=== PATIENT | female | born 1950 | race Caucasian/White ===

== ENCOUNTER → 2017-04-20 | Outpatient (CLI) | payer MEDICARE ==
[2016-01-22 12:55] VITALS: BP 138/88
[~2017-04-20] MED LIST: ASPIRIN E.C. 8181 MG PO; CRESTOR 10MG10 MG PO; IBU600 MG PO; NORCO 325 MG-51 TAB PO
[2017-04-20 07:38] LABS: ALBUMIN 3.9 g/dL (3.5-5.0); CALCIUM 9.2 mg/dL (8.4-10.2); TOTAL BILIRUBIN 0.7 mg/dL (0.2-1.3)
[2017-04-20 07:40] LABS: EOS # 0.2 (0.04-0.40); EOS % 2.8 % (1.0-5.0); HEMATOCRIT 42.4 % (37.0-47.0); HEMOGLOBIN 14.1 g/dL (12.5-16.0); LYMPH# 2.7 (1.50-4.00); MEAN CELL VOLUME 92 fl (78-100); MEAN CORPUSCULAR HEMOGLOBIN 31 pg (27-31); MEAN CORPUSCULAR HGB CONC 33 g/dL (33-37); MEAN PLATELET VOLUME 8.6 fl (7.4-10.4); MONO # 0.8 (0.20-0.80); PLATELET COUNT 330 K/mm3 (130-400); RED BLOOD COUNT 4.63 M/mm3 (4.10-5.30); RED CELL DISTRIBUTION WIDTH 13.6 % (11.5-14.5); WHITE BLOOD COUNT 7.7 K/mm3 (4.8-10.8)
== END ==
LOC: LAB 07:07
PROVIDERS: Nurse Practitioner Family
DX: Z00.00 Encounter for general adult medical examination without abnormal findings (principal); I10 Essential (primary) hypertension; R73.01 Impaired fasting glucose; Z13.220 Encounter for screening for lipoid disorders

== ENCOUNTER → 2017-05-29 | Outpatient (CLI) | payer MEDICARE ==
[2016-01-22 12:55] VITALS: BP 138/88
== END ==
LOC: RAD 16:00 → MAMMO 16:00
DX: Z12.31 Encounter for screening mammogram for malignant neoplasm of breast (principal)
CPT/HCPCS: G0202

== ENCOUNTER → 2017-08-29 | Outpatient (CLI) | payer MEDICARE ==
[2016-01-22 12:55] VITALS: BP 138/88
== END ==
LOC: RAD 15:27
DX: M17.0 Bilateral primary osteoarthritis of knee (principal)

== ENCOUNTER → 2018-12-05 | Outpatient (CLI) | payer MEDICARE ==
[2016-01-22 12:55] VITALS: BP 138/88
[2018-12-05 10:29] LABS: EOS # 0.2 (0.04-0.40); EOS % 1.5 % (1.0-5.0); HEMATOCRIT 43.3 % (37.0-47.0); MEAN CELL VOLUME 94 fl (78-100); MEAN CORPUSCULAR HEMOGLOBIN 30 pg (27-31); MEAN CORPUSCULAR HGB CONC 32 g/dL (33-37); MEAN PLATELET VOLUME 9.7 fl (7.4-10.4); MONO # 0.8 (0.20-0.80); NEU # 7.3 (1.40-6.50); PLATELET COUNT 97 K/mm3 (130-400); RED CELL DISTRIBUTION WIDTH 14.7 % (11.5-14.5); WHITE BLOOD COUNT 11.4 K/mm3 (4.8-10.8)
[2018-12-05 10:52] LABS: ALBUMIN 3.9 g/dL (3.4-4.8); POTASSIUM 3.9 mmol/L (3.5-5.1)
[2018-12-05 10:53] LABS: CALCIUM 9.4 mg/dL (8.3-10.5)
[2018-12-05 10:54] LABS: TOTAL PROTEIN 7.1 g/dL (6.2-8.1)
[2018-12-05 10:56] LABS: TOTAL BILIRUBIN 0.5 mg/dL (0.2-1.2)
== END ==
LOC: LAB 10:11
PROVIDERS: Physician Assistant
DX: Z00.00 Encounter for general adult medical examination without abnormal findings (principal); Z12.31 Encounter for screening mammogram for malignant neoplasm of breast; I10 Essential (primary) hypertension; M19.90 Unspecified osteoarthritis, unspecified site; K21.9 Gastro-esophageal reflux disease without esophagitis; J45.909 Unspecified asthma, uncomplicated; M85.851 Other specified disorders of bone density and structure, right thigh; M85.852 Other specified disorders of bone density and structure, left thigh

== ENCOUNTER 2018-12-20 12:06 | Emergency (ER) | payer MEDICARE ==
[~2018-12-20] VITALS: Ht 157.5 cm; Wt 85.0 kg
[2018-12-20] MEDS ORDERED: AUGMENTIN 875-1 EAC1 PO (13:42)
[2018-12-20] MEDS ORDERED: NORCO 325 MG-51 TA1 PO (13:42)
[2018-12-20 14:01] VITALS: BP 154/87
== END 2018-12-20 13:58 | disposition home or self-care (01) ==
LOC: ED 12:06
DX: S02.2XXB Fracture of nasal bones, initial encounter for open fracture (principal); K21.9 Gastro-esophageal reflux disease without esophagitis; Z90.49 Acquired absence of other specified parts of digestive tract; Z23 Encounter for immunization; W01.0XXA Fall on same level from slipping, tripping and stumbling without subsequent striking against object, initial encounter; Y93.02 Activity, running; Y92.009 Unspecified place in unspecified non-institutional (private) residence as the place of occurrence of the external cause

== ENCOUNTER → 2019-03-12 | Outpatient (CLI) | payer MEDICARE ==
[~2019-03-12] MED LIST changes: +AUGMENTIN 875-1 EAC1 PO; +NORCO 325 MG-51 TA1 PO
== END ==
LOC: RAD 09:30
DX: M13.862 Other specified arthritis, left knee (principal); M13.861 Other specified arthritis, right knee

== ENCOUNTER → 2019-08-12 | Outpatient (CLI) | payer MEDICARE | LOC: MAMMO 09:15 | DX: Z12.31 Encounter for screening mammogram for malignant neoplasm of breast (principal); I10 Essential (primary) hypertension; J45.909 Unspecified asthma, uncomplicated; M85.851 Other specified disorders of bone density and structure, right thigh; M19.90 Unspecified osteoarthritis, unspecified site; K21.9 Gastro-esophageal reflux disease without esophagitis ==

== ENCOUNTER → 2020-02-04 | Day surgery (SDC) | payer MEDICARE | LOC: MSO 12:35 | DX: H25.11 Age-related nuclear cataract, right eye (principal); Z90.710 Acquired absence of both cervix and uterus; Z90.49 Acquired absence of other specified parts of digestive tract; I10 Essential (primary) hypertension; J45.909 Unspecified asthma, uncomplicated; Z85.828 Personal history of other malignant neoplasm of skin | CPT/HCPCS: 00142; J0171; J2250; V2632 ==

== ENCOUNTER → 2020-03-03 | Day surgery (SDC) | payer MEDICARE | LOC: MSO 11:56 | DX: H25.12 Age-related nuclear cataract, left eye (principal); I10 Essential (primary) hypertension; J45.909 Unspecified asthma, uncomplicated; K21.9 Gastro-esophageal reflux disease without esophagitis; M19.90 Unspecified osteoarthritis, unspecified site; Z85.828 Personal history of other malignant neoplasm of skin; E66.01 Morbid (severe) obesity due to excess calories; Z90.49 Acquired absence of other specified parts of digestive tract; Z90.710 Acquired absence of both cervix and uterus | CPT/HCPCS: 00142; J0171; J2250; J3010; V2632 ==

== ENCOUNTER → 2020-08-11 | Outpatient (CLI) | payer MEDICARE | LOC: RAD 09:07 | DX: M22.2X2 Patellofemoral disorders, left knee (principal); M17.11 Unilateral primary osteoarthritis, right knee ==

== ENCOUNTER → 2020-10-11 | Outpatient (CLI) | payer MEDICARE | LOC: LAB 16:35 | DX: R05 Cough (principal); Z20.822 Contact with and (suspected) exposure to COVID-19 ==

== ENCOUNTER → 2020-11-19 | Outpatient (CLI) | payer MEDICARE ==
[2020-11-19 09:52] LABS: HEMATOCRIT 43.9 % (37.0-47.0); HEMOGLOBIN 14.8 g/dL (12.5-16.0); MEAN CELL VOLUME 89 fl (78-100); MEAN CORPUSCULAR HEMOGLOBIN 30 pg (27-31); MEAN CORPUSCULAR HGB CONC 34 g/dL (33-37); MEAN PLATELET VOLUME 8.1 fl (7.4-10.4); PLATELET COUNT 387 K/mm3 (130-400); RED BLOOD COUNT 4.92 M/mm3 (4.10-5.30); RED CELL DISTRIBUTION WIDTH 13.3 % (11.5-14.5)
[2020-11-19 10:03] LABS: ALBUMIN 4.1 g/dL (3.4-4.8); POTASSIUM 4.5 mmol/L (3.5-5.1)
[2020-11-19 10:04] LABS: CALCIUM 9.5 mg/dL (8.3-10.5)
[2020-11-19 10:06] LABS: TOTAL PROTEIN 7.3 g/dL (6.2-8.1)
[2020-11-19 10:08] LABS: TOTAL BILIRUBIN 0.3 mg/dL (0.2-1.2)
[2020-11-19 10:29] LABS: WHITE BLOOD COUNT 25.1 K/mm3 (4.8-10.8)
[2020-11-19 10:54] LABS: LYMPHOCYTE 11 % (20-51); MONOCYTE 6 % (3-10); NEUTROPHILS 83 % (42-75)
== END ==
LOC: LAB 09:33
PROVIDERS: Physician Assistant
DX: Z13.1 Encounter for screening for diabetes mellitus (principal); E78.2 Mixed hyperlipidemia; I10 Essential (primary) hypertension; M85.80 Other specified disorders of bone density and structure, unspecified site

== ENCOUNTER 2021-05-28 18:44 | Emergency (ER) | payer MEDICARE ==
[2021-05-28] MEDS ORDERED: CYCLOBENZAPRINE10 M1 PO (21:31)
[2021-05-28] MEDS ORDERED: PERCOCET 325 MG1 TA2 PO (21:31)
[2021-05-28 21:48] VITALS: BP 140/76
== END 2021-05-28 21:49 | disposition home or self-care (01) ==
LOC: ED 18:44
DX: S22.070A Wedge compression fracture of T9-T10 vertebra, initial encounter for closed fracture (principal); S22.080A Wedge compression fracture of T11-T12 vertebra, initial encounter for closed fracture; S30.0XXA Contusion of lower back and pelvis, initial encounter; W10.9XXA Fall (on) (from) unspecified stairs and steps, initial encounter; Y92.008 Other place in unspecified non-institutional (private) residence as the place of occurrence of the external cause; W22.01XA Walked into wall, initial encounter
CPT/HCPCS: J1885; J2360

== ENCOUNTER → 2021-06-16 | Outpatient (CLI) | payer MEDICARE ==
[~2021-06-16] MED LIST changes: +CYCLOBENZAPRINE10 M1 PO; +PERCOCET 325 MG1 TA2 PO
== END ==
LOC: RAD 15:59
DX: S22.000A Wedge compression fracture of unspecified thoracic vertebra, initial encounter for closed fracture (principal)

== ENCOUNTER → 2021-07-13 | Outpatient (CLI) | payer MEDICARE | LOC: RAD 11:27 | DX: M48.54XA Collapsed vertebra, not elsewhere classified, thoracic region, initial encounter for fracture (principal) ==

== ENCOUNTER → 2021-09-15 | Outpatient (CLI) | payer MEDICARE | LOC: RAD 09:19 | DX: M48.54XD Collapsed vertebra, not elsewhere classified, thoracic region, subsequent encounter for fracture with routine healing (principal); M47.814 Spondylosis without myelopathy or radiculopathy, thoracic region ==

== ENCOUNTER → 2021-10-12 | Outpatient (CLI) | payer MEDICARE | LOC: RAD 08:08 | DX: S22.080D Wedge compression fracture of T11-T12 vertebra, subsequent encounter for fracture with routine healing (principal); M41.84 Other forms of scoliosis, thoracic region ==

== ENCOUNTER → 2021-11-17 | Outpatient (CLI) | payer MEDICARE ==
[2021-11-17 13:34] LABS: BASO # 0.01 K/mm3 (0.02-0.10); HEMATOCRIT 42.7 % (37.0-47.0); LYMPH# 3.23 K/mm3 (1.50-4.00); MEAN CELL VOLUME 91 fl (78-100); MEAN CORPUSCULAR HEMOGLOBIN 30 pg (27-31); MEAN CORPUSCULAR HGB CONC 33 g/dL (33-37); MEAN PLATELET VOLUME 8.1 fl (7.4-10.4); MONO # 1.11 K/mm3 (0.20-0.80); NEU # 13.74 K/mm3 (1.40-6.50); PLATELET COUNT 365 K/mm3 (130-400); RED BLOOD COUNT 4.68 M/mm3 (4.10-5.30); RED CELL DISTRIBUTION WIDTH 13.7 % (11.5-14.5); WHITE BLOOD COUNT 18.2 K/mm3 (4.8-10.8)
[2021-11-17 13:44] LABS: POTASSIUM 4.8 mmol/L (3.5-5.1)
[2021-11-17 13:46] LABS: CALCIUM 9.3 mg/dL (8.3-10.5)
[2021-11-17 13:47] LABS: TOTAL PROTEIN 6.9 g/dL (6.2-8.1)
[2021-11-17 13:49] LABS: TOTAL BILIRUBIN 0.3 mg/dL (0.2-1.2)
== END ==
LOC: LAB 13:21
PROVIDERS: Physician Assistant
DX: Z00.00 Encounter for general adult medical examination without abnormal findings (principal); Z12.31 Encounter for screening mammogram for malignant neoplasm of breast; E78.5 Hyperlipidemia, unspecified; I10 Essential (primary) hypertension; H81.13 Benign paroxysmal vertigo, bilateral; J45.909 Unspecified asthma, uncomplicated; M19.90 Unspecified osteoarthritis, unspecified site; S22.000A Wedge compression fracture of unspecified thoracic vertebra, initial encounter for closed fracture; K21.9 Gastro-esophageal reflux disease without esophagitis; M85.80 Other specified disorders of bone density and structure, unspecified site; K90.9 Intestinal malabsorption, unspecified

== ENCOUNTER → 2021-11-23 | Outpatient (CLI) | payer MEDICARE | LOC: RAD 08:21 → MAMMO 08:30 | DX: M81.0 Age-related osteoporosis without current pathological fracture (principal); S22.000A Wedge compression fracture of unspecified thoracic vertebra, initial encounter for closed fracture ==

== ENCOUNTER → 2022-02-15 | Outpatient (CLI) | payer MEDICARE | LOC: RAD 07:30 | DX: M22.2X1 Patellofemoral disorders, right knee (principal); M22.2X2 Patellofemoral disorders, left knee ==

== ENCOUNTER 2022-04-03 08:00 | Outpatient (RCR) | payer MEDICARE | END 2022-04-10 | disposition still patient (30) | LOC: PT | DX: Z96.652 Presence of left artificial knee joint (principal) ==

== ENCOUNTER 2022-04-12 09:00 | Outpatient (RCR) | payer MEDICARE | END 2022-05-10 | disposition still patient (30) | LOC: PT | DX: Z96.652 Presence of left artificial knee joint (principal) ==

== ENCOUNTER → 2023-03-21 | Outpatient (CLI) | payer MEDICARE ==
[~2023-03-21] MED LIST changes: +ALENDRONATE SOD70 MG PO; +ATORVASTATIN CA20 MG PO; +HYDROCODONE PO473 ML PO; +KETOROLAC10 MG PO; +LIDOCAINE PAIN1 EACH TP; +LYMEPAK100 MG PO; +ZYRTEC ALLERGY10 MG PO
== END ==
LOC: RAD 09:37
DX: M48.54XA Collapsed vertebra, not elsewhere classified, thoracic region, initial encounter for fracture (principal); M43.16 Spondylolisthesis, lumbar region

== ENCOUNTER → 2023-05-23 | Outpatient (CLI) | payer MEDICARE | LOC: MAMMO 14:00 | DX: Z12.31 Encounter for screening mammogram for malignant neoplasm of breast (principal) ==

== ENCOUNTER → 2023-12-03 | Outpatient (CLI) | payer MEDICARE ==
[2023-12-03 07:35] LABS: BASO # 0.03 K/mm3 (0.02-0.10); EOS % 2.9 % (1.0-5.0); HEMATOCRIT 43.4 % (37.0-47.0); LYMPH# 2.84 K/mm3 (1.50-4.00); MEAN CELL VOLUME 94 fl (78-100); MEAN CORPUSCULAR HEMOGLOBIN 30 pg (27-31); MEAN CORPUSCULAR HGB CONC 32 g/dL (33-37); MEAN PLATELET VOLUME 8.3 fl (7.4-10.4); MONO # 0.62 K/mm3 (0.20-0.80); NEU # 3.26 K/mm3 (1.40-6.50); PLATELET COUNT 297 K/mm3 (130-400); RED BLOOD COUNT 4.61 M/mm3 (4.10-5.30); RED CELL DISTRIBUTION WIDTH 13.4 % (11.5-14.5)
[2023-12-03 07:38] LABS: ALBUMIN 3.9 g/dL (3.4-4.8)
[2023-12-03 07:42] LABS: CALCIUM 9.4 mg/dL (8.3-10.5); TOTAL BILIRUBIN 0.5 mg/dL (0.2-1.2)
[2023-12-03 07:43] LABS: TOTAL PROTEIN 6.7 g/dL (6.2-8.1)
== END ==
LOC: LAB 07:14
PROVIDERS: Physician Assistant
DX: Z13.29 Encounter for screening for other suspected endocrine disorder (principal); Z13.1 Encounter for screening for diabetes mellitus; M81.0 Age-related osteoporosis without current pathological fracture; I10 Essential (primary) hypertension; E78.5 Hyperlipidemia, unspecified; K90.9 Intestinal malabsorption, unspecified

== ENCOUNTER → 2024-01-23 | Outpatient (CLI) | payer MEDICARE | LOC: RAD 12:01 | DX: M25.821 Other specified joint disorders, right elbow (principal); M25.552 Pain in left hip; R07.89 Other chest pain; W19.XXXA Unspecified fall, initial encounter ==

== ENCOUNTER 2024-02-20 07:23 | Emergency (ER) | payer MEDICARE ==
[~2024-02-20] VITALS: Ht 157.5 cm; Wt 90.9 kg
[2024-02-20 08:27] LABS: BASO # 0.01 K/mm3 (0.02-0.10); EOS # 0.17 K/mm3 (0.04-0.40); EOS % 1.3 % (1.0-5.0); HEMATOCRIT 47.3 % (37.0-47.0); HEMOGLOBIN 15.4 g/dL (12.5-16.0); LYMPH# 3.67 K/mm3 (1.50-4.00); MEAN CELL VOLUME 92 fl (78-100); MEAN CORPUSCULAR HEMOGLOBIN 30 pg (27-31); MEAN CORPUSCULAR HGB CONC 33 g/dL (33-37); MONO # 1.05 K/mm3 (0.20-0.80); PLATELET COUNT 366 K/mm3 (130-400); RED BLOOD COUNT 5.16 M/mm3 (4.10-5.30); WHITE BLOOD COUNT 13.1 K/mm3 (4.8-10.8)
[2024-02-20 08:36] LABS: ALBUMIN 4.3 g/dL (3.4-4.8); SODIUM 141 mmol/L (136-145)
[2024-02-20 08:37] LABS: CALCIUM 9.6 mg/dL (8.3-10.5)
[2024-02-20 08:38] LABS: GLUCOSE 99 mg/dL (65-105); TOTAL PROTEIN 7.7 g/dL (6.2-8.1)
[2024-02-20 08:39] LABS: CARBON DIOXIDE 23 mmol/L (23-31)
[2024-02-20 08:40] LABS: TOTAL BILIRUBIN 0.5 mg/dL (0.2-1.2)
[2024-02-20 08:43] LABS: AST-SGOT 25 U/L (5-34)
[2024-02-20 08:45] LABS: ALT/SGPT 22 U/L (0-55)
[2024-02-20 08:59] LABS: TROPONIN-I < 0.030 ng/mL (0.00-0.033)
[2024-02-20] MEDS ORDERED: Azithromycin 500 MG in NS 250 ML IV ONE (11:15)
[2024-02-20] MEDS ORDERED: methylPREDNISolone Sod Succ 125 MG/2 ML VIAL IV ONE (11:15)
[2024-02-20] MEDS ORDERED: cefTRIAXone 1 G in Water For Injection,Sterile 10 ML IV ONE (11:15)
[2024-02-20] MEDS ORDERED: CEFDINIR300 MG PO (11:16)
[2024-02-20] MEDS ORDERED: ZITHROMAX Z PA250 MG PO (11:16)
[2024-02-20 13:00] VITALS: BP 142/86
== END 2024-02-20 13:00 | disposition home or self-care (01) ==
LOC: ED 07:23
PROVIDERS: Family Medicine
DX: J18.9 Pneumonia, unspecified organism (principal)
CPT/HCPCS: J0456; J0696; J2919; J7050

== ENCOUNTER → 2024-07-17 | Outpatient (CLI) | payer MEDICARE ==
[~2024-07-17] MED LIST changes: +CEFDINIR300 MG PO; +ZITHROMAX Z PA250 MG PO
== END ==
LOC: MAMMO 12:53
DX: Z12.31 Encounter for screening mammogram for malignant neoplasm of breast (principal)

== ENCOUNTER → 2024-07-17 | Outpatient (CLI) | payer MEDICARE | LOC: RAD 12:57 | DX: M81.0 Age-related osteoporosis without current pathological fracture (principal) ==